=== PATIENT | female | born 1995 | race American Indian/Alaskan Native ===

== ENCOUNTER 2020-11-10 14:55 | Emergency (ER) | payer SELFPAY ==
[2020-11-10 16:36] VITALS: BP 143/71
--- NOTE | 2020-11-10 16:57 | Event Note ---
ED Screening Note ED Screening Note: vaginal bleeding for two weeks states she is changing every 2 hours has never seen equipment maintenance tech and has never had pap smear no abd pain no fever no n/v/d no dysuria no abnormal discharge PMHx none no allergies to meds last cycle was last month states she typically cycles 4 days This initial assessment/diagnostic orders/clinical plan/treatment(s) is/are subject to change based on patients health status, clinical progression and re- assessment by fellow clinical providers in the ED. Further treatment and workup at subsequent clinical providers discretion. Patient/guardian urged not to elope from the ED as their condition may be serious if not clinically assessed and managed. Initial orders include: labs
[2020-11-10 17:26] LABS: Basophils % (Auto) 0.2 % (0.0-1.8); Eosinophils # (Auto) 0.1 K/mm3 (0.0-0.4); Eosinophils % (Auto) 1.3 % (0.0-4.3); Hematocrit 36.4 % (30.3-42.9); Lymphocytes # (Auto) 3.2 K/mm3 (1.2-5.4); Lymphocytes % (Auto) 43.1 % (13.4-35.0); Mean Corpuscular HGB Conc 33 % (30-34); Mean Corpuscular Volume 85 fl (79-97); Monocytes # (Auto) 0.5 K/mm3 (0.0-0.8); Monocytes % (Auto) 6.8 % (0.0-7.3); Platelet Count 393 K/mm3 (140-440); Red Cell Distribution Width 16.3 % (13.2-15.2)
[2020-11-10 17:44] LABS: Alanine Aminotransferase 21 units/L (7-56); Albumin 4.3 g/dL (3.9-5); Blood Urea Nitrogen 8 mg/dL (7-17); Calcium 10.1 mg/dL (8.4-10.2); Hemolysis Index 23
[2020-11-10 17:49] LABS: BUN/Creatinine Ratio 13
--- NOTE | 2020-11-10 18:49 | Emergency Department Report ---
ED Female HPI - General Chief complaint: Vaginal Bleeding Stated complaint: MEDS TO STOP PERIOD Time Seen by Provider: 11/10/20 16:55 Source: patient Mode of arrival: Ambulatory Limitations: No Limitations - History of Present Illness Initial comments: Patient is a 25-year-old female presents emergency room with complaints of vaginal bleeding for two weeks. She states that she is changing her menstrual pad approximately every 2 hours. she has never seen consumer marketing manager and has never had pap smear. He states that this is the appropriate time for her next menstrual cycle. She denies any abdominal pain, fever, nausea, vomiting, diarrhea, dysuria, urinary symptoms, abnormal vaginal discharge. States that she has not sexually active. Past medical history. No allergies to medications. Last menstrual cycle was last month. States her cycles typically last 4 days. - Related Data Previous Rx's Medication Instructions Recorded Last Taken Type medroxyPROGESTERone ACETATE 10 mg PO QDAY 10 Days #10 tablet 11/10/20 Unknown Rx [Provera] Allergies Allergy/AdvReac Type Severity Reaction Status Date / Time No Known Allergies Allergy Unverified 11/10/20 16:37 ED Review of Systems ROS: Stated complaint: MEDS TO STOP PERIOD Other details as noted in HPI Comment: All other systems reviewed and negative ED Past Medical Hx - Past Medical History Previous Medical History?: No - Surgical History Past Surgical History?: No - Medications Home Medications: Home Medications Medication Instructions Recorded Confirmed Last Taken Type medroxyPROGESTERone ACETATE 10 mg PO QDAY 10 Days #10 tablet 11/10/20 Unknown Rx [Provera] ED Physical Exam - General Limitations: No Limitations General appearance: alert, in no apparent distress - Head Head exam: Present: atraumatic, normocephalic - Eye Eye exam: Present: normal appearance - ENT ENT exam: Present: mucous membranes moist - Respiratory Respiratory exam: Present: normal lung sounds bilaterally. Absent: respiratory distress, wheezes, rales, rhonchi, stridor, chest wall tenderness, accessory muscle use, decreased breath sounds, prolonged expiratory - Cardiovascular Cardiovascular Exam: Present: regular rate, normal rhythm, normal heart sounds. Absent: systolic murmur, diastolic murmur, rubs, gallop - GI/Abdominal GI/Abdominal exam: Present: soft, normal bowel sounds. Absent: distended, tenderness, guarding, rebound, rigid - Neurological Exam Neurological exam: Present: alert, oriented X3 - Psychiatric Psychiatric exam: Present: normal affect, normal mood - Skin Skin exam: Present: warm, dry, intact ED Course Vital Signs 11/10/20 16:12 Temperature 98.1 F Pulse Rate 85 Respiratory 16 Rate Blood Pressure 143/71 O2 Sat by Pulse 100 Oximetry ED Medical Decision Making - Lab Data Result diagrams: 11/10/20 17:03 11/10/20 17:03 Lab Results 11/10/20 11/10/20 11/10/20 Range/Units 17:03 17:03 17:03 WBC 7.5 (4.5-11.0) K/mm3 RBC 4.30 (3.65-5.03) M/mm3 Hgb 12.0 (10.1-14.3) gm/dl Hct 36.4 (30.3-42.9) % MCV 85 (79-97) fl MCH 28 (28-32) pg MCHC 33 (30-34) % RDW 16.3 H (13.2-15.2) % Plt Count 393 (140-440) K/mm3 Lymph % (Auto) 43.1 H (13.4-35.0) % Castro % (Auto) 6.8 (0.0-7.3) % Eos % (Auto) 1.3 (0.0-4.3) % Baso % (Auto) 0.2 (0.0-1.8) % Lymph # (Auto) 3.2 (1.2-5.4) K/mm3 Castro # (Auto) 0.5 (0.0-0.8) K/mm3 Eos # (Auto) 0.1 (0.0-0.4) K/mm3 Baso # (Auto) 0.0 (0.0-0.1) K/mm3 Seg Neutrophils % 48.6 (40.0-70.0) % Seg Neutrophils # 3.6 (1.8-7.7) K/mm3 Sodium 138 (137-145) mmol/L Potassium 4.7 (3.6-5.0) mmol/L Chloride 100.2 (98-107) mmol/L Carbon Dioxide 29 (22-30) mmol/L Anion Gap 14 mmol/L BUN 8 (7-17) mg/dL Creatinine 0.6 (0.6-1.2) mg/dL Estimated GFR > 60 ml/min BUN/Creatinine Ratio 13 % Glucose 146 H (65-100) mg/dL Calcium 10.1 (8.4-10.2) mg/dL Total Bilirubin 0.20 (0.1-1.2) mg/dL AST 23 (5-40) units/L ALT 21 (7-56) units/L Alkaline Phosphatase 93 (35-129) units/L Total Protein 8.4 H (6.3-8.2) g/dL Albumin 4.3 (3.9-5) g/dL Albumin/Globulin Ratio 1.0 % HCG, Quant < 2 (0-4) mIU/mL - Medical Decision Making Patient is a 25-year-old female presents emergency room with complaints of vaginal bleeding for two weeks. She states that she is changing her menstrual pad approximately every 2 hours. she has never seen consumer marketing manager and has never had pap smear. He states that this is the appropriate time for her next menstrual cycle. She denies any abdominal pain, fever, nausea, vomiting, diarrhea, dysuria, urinary symptoms, abnormal vaginal discharge. States that she has not sexually active. Past medical history. No allergies to medications. Last menstrual cycle was last month. States her cycles typically last 4 days. Vitals are stable. Labs are stable. H&H is normal. hCG quant is less than 2. Patient given prescription for Provera. Discussed the importance of outpatient primary care and [facility] follow-up. Advised patient Please take medication as prescribed. Increase your fluid intake. Follow-up with your primary care doctor. Follow-up with [facility]. Return to emergency room for new or worsening symptoms. Critical care attestation.: If time is entered above; I have spent that time in minutes in the direct care of this critically ill patient, excluding procedure time. ED Disposition Clinical Impression: Menorrhagia Qualifiers: Menorrhagia type: with regular cycle Qualified Code(s): N92.0 - Excessive and frequent menstruation with regular cycle Disposition: 01 HOME / SELF CARE / HOMELESS Is pt being admited?: No Does the pt Need Aspirin: No Condition: Stable Instructions: Menorrhagia, [id number] Additional Instructions: Please take medication as prescribed. Increase your fluid intake. Follow-up with your primary care doctor. Follow-up with [facility]. Return to emergency room for new or worsening symptoms. Prescriptions: medroxyPROGESTERone ACETATE [Provera] 10 mg PO QDAY 10 Days #10 tablet Referrals: [facility] [Provider Group] - 2-3 Days [facility] [Provider Group] - 2-3 Days Time of Disposition: 18:48 Print Language: FRISIAN
== END 2020-11-10 18:52 | disposition home or self-care (01) ==
LOC: ED 14:55
DX: N92.0 Excessive and frequent menstruation with regular cycle (principal); Z79.899 Other long term (current) drug therapy
CPT/HCPCS: 36415; 80053; 84702; 85025